=== PATIENT | female | born 1960 ===

== ENCOUNTER 2019-01-21 17:30 | Emergency (ER) | payer SELFPAY ==
[2019-01-21 18:01] LABS: Hematocrit 40.8 % (30.3-42.9); Hemoglobin 13.4 gm/dl (10.1-14.3); Mean Corpuscular HGB Conc 33 % (30-34); Mean Corpuscular Volume 87 fl (79-97); Platelet Count 167 K/mm3 (140-440); Red Blood Count 4.72 M/mm3 (3.65-5.03); Red Cell Distribution Width 13.7 % (13.2-15.2)
--- NOTE | 2019-01-21 18:03 | Emergency Department Report ---
ED Seizure HPI - General Chief Complaint: Seizure Stated Complaint: CONVULSIONS Time Seen by Provider: 01/21/19 17:56 Source: patient, EMS Mode of arrival: Stretcher Limitations: No Limitations - History of Present Illness Initial Comments: 58 y/o female with a past medical history HTN and seizure disorder. Patient report she had a [place] the [employer] [place] today. Patient reports that Thursday she was seen by her neurologist and was told to stop her Keppra 500mg bid. Patient had a sezire 2 days later. Patient is followed by [facility]. Neo duff denies any pain and did not hit her head to bite her tongue. MD Complaint: seizure -: This afternoon Witnessed:: Yes Trauma: No Seizure History: known seizure disorder Place: street/outdoors (on [employer]) Possible Precipitating Event: none Associated Symptoms: denies other symptoms - Related Data Previous Rx's Medication Instructions Recorded Last Taken Type levETIRAcetam [Keppra TAB] 500 mg PO BID #60 tablet 01/21/19 Unknown Rx Allergies Allergy/AdvReac Type Severity Reaction Status Date / Time No Known Allergies Allergy Verified 01/21/19 17:42 ED Review of Systems ROS: Stated complaint: CONVULSIONS Other details as noted in HPI Comment: All other systems reviewed and negative ED Past Medical Hx - Past Medical History Previous Medical History?: Yes Hx Seizures: Yes - Surgical History Past Surgical History?: Yes Additional Surgical History: tubal - Social History Smoking Status: Former Smoker Substance Use Type: Alcohol - Medications Home Medications: Home Medications Medication Instructions Recorded Confirmed Last Taken Type levETIRAcetam [Keppra TAB] 500 mg PO BID #60 tablet 01/21/19 Unknown Rx ED Physical Exam - General Limitations: No Limitations General appearance: alert, in no apparent distress - Head Head exam: Present: atraumatic, normocephalic - Eye Eye exam: Present: normal appearance, PERRL - ENT ENT exam: Present: mucous membranes moist - Neck Neck exam: Present: normal inspection, full ROM - Respiratory Respiratory exam: Present: normal lung sounds bilaterally. Absent: respiratory distress - Cardiovascular Cardiovascular Exam: Present: regular rate, normal rhythm. Absent: systolic murmur, diastolic murmur, rubs, gallop - GI/Abdominal GI/Abdominal exam: Present: soft, normal bowel sounds - Extremities Exam Extremities exam: Present: normal inspection, full ROM. Absent: tenderness - Back Exam Back exam: Present: normal inspection - Expanded Neurological Exam Expanded Patient oriented to: Present: person, place, time Cranial nerves: EOM's Intact: Normal, Gag Reflex: Normal, Tongue Deviation: Normal, Nystagmus: Normal, Facial Sensation: Normal, Facial Palsy with Forehead Movement: Normal, Facial Palsy without Forehead Movement: Normal Cerebellar function: Finger to Nose: Normal, Heel to Storey: Normal, Romberg: Normal Upper motor neuron: Waqar Neglect: Normal, Pronator Drift: Normal, Babinski Sign: Normal, Sensory Extinction: Normal Sensory exam: Upper Extremity Light Touch: Normal, Upper Extremity Pin Prick: Normal, Upper Extremity Temperature: Normal, UE 2 Point Discrimination: Normal, Lower Extremity Light Touch: Normal, Lower Extremity Pin Prick: Normal, Lower Extremity Temperature: Normal, LE 2 Point Discrimination: Normal Motor strength exam: RUE: 4, LUE: 4, RLE: 4, LLE: 4 Best Eye Response (Renick): (4) open spontaneously Best Motor Response (Renick): (6) obeys commands Best Verbal Response (Renick): (5) oriented Renick Total: 15 - Psychiatric Psychiatric exam: Present: normal affect, normal mood - Skin Skin exam: Present: warm, dry, intact, normal color. Absent: rash ED Course Vital Signs 01/21/19 01/21/19 01/21/19 17:36 17:42 17:46 Temperature 98.2 F Pulse Rate 66 66 65 Respiratory 21 21 19 Rate Blood Pressure 125/67 125/67 O2 Sat by Pulse 97 97 96 Oximetry 01/21/19 01/21/19 17:49 18:00 Temperature Pulse Rate 64 Respiratory 21 14 Rate Blood Pressure 129/71 O2 Sat by Pulse 97 97 Oximetry ED Medical Decision Making - Lab Data Result diagrams: 01/21/19 17:53 01/21/19 17:53 Laboratory Tests 01/21/19 01/21/19 01/21/19 17:53 17:53 17:53 WBC 6.4 RBC 4.72 Hgb 13.4 Hct 40.8 MCV 87 MCH 29 MCHC 33 RDW 13.7 Plt Count 167 Sodium 140 Potassium 3.9 Chloride 103.3 Carbon Dioxide 22 Anion Gap 19 BUN 11 Creatinine 1.2 Estimated GFR 46 BUN/Creatinine Ratio 9 Glucose 103 H Calcium 9.4 HCG, Qual Negative - Medical Decision Making 58 y/o female with a past medical history HTN and seizure disorder. Patient report she [place] [employer] [place]. Patient reports that Thursday she was seen by her neurologist and was told to stop her Keppra 500mg bid. Patient had a sezire 2 days later. Patient is followed by [facility]. Jasbir toussaint denies any pain and did not hit her head to bite her tongue. Spoke with Dr. Martini regarding case. Labs are stable. No head injury or deficits. Patient will be placed back on her Keppra 500mg po bid and to follow up with her neurologist. Critical care attestation.: If time is entered above; I have spent that time in minutes in the direct care of this critically ill patient, excluding procedure time. ED Disposition Clinical Impression: Seizure disorder Disposition: DC-01 TO HOME OR SELFCARE Is pt being admited?: No Does the pt Need Aspirin: No Condition: Stable Instructions: Epilepsy (ED) Prescriptions: levETIRAcetam [Keppra TAB] 500 mg PO BID #60 tablet Referrals: Your, Neurologist [Other] - 3-5 Days DELGADO WYATT MD [Referring] - 3-5 Days
[2019-01-21 18:19] VITALS: BP 129/71
[2019-01-21 18:20] LABS: Calcium 9.4 mg/dL (8.4-10.2)
== END 2019-01-21 20:00 | disposition home or self-care (01) ==
LOC: ED 17:30
DX: G40.909 Epilepsy, unspecified, not intractable, without status epilepticus (principal); Z87.891 Personal history of nicotine dependence
CPT/HCPCS: 36415; 80048; 84703; 85027